=== PATIENT | female | born 1995 | race Asian ===

== ENCOUNTER → 2023-08-19 | Outpatient (REF) | LOC: M PLAIMG 12:22 | PROVIDERS: ATTEND Internal Medicine | DX: R52 Pain, unspecified (principal) ==

== ENCOUNTER 2023-10-30 14:21 | Emergency (ER) | payer OTHER ==
[~2023-10-30] VITALS: Ht 149.9 cm; Wt 53.2 kg
[2023-10-30] MEDS ORDERED: WELL200T PO (14:31)
[2023-10-30] MEDS ORDERED: EXCETAB32 PO (14:32)
[2023-10-30 16:21] LABS: BASO # 0.1 10^3/uL (0.0-0.2); BASO % 0.6 % (0.0-1.0); EOS # 0.2 10^3/uL (0.0-0.5); HEMATOCRIT 46.5 % (36.0-47.0); HEMOGLOBIN 15.6 g/dl (12.0-15.5); LYMPH # 2.9 10^3/uL (1.5-5.0); LYMPH % 30.3 % (24.0-44.0); MEAN CORPUSCULAR HEMOGLOBIN 30.2 pg (27.0-33.0); MEAN CORPUSCULAR HGB CONC 33.5 g/dl (32.0-36.5); MEAN CORPUSCULAR VOLUME 89.9 fl (80.0-96.0); MONO # 0.3 10^3/uL (0.0-0.8); MONO % 3.5 % (2.0-8.0); NEUTROPHILS # 6.1 10^3/uL (1.5-8.5); NEUTROPHILS % 63.5 % (36.0-66.0); PLATELET COUNT, AUTOMATED 309 10^3/uL (150-450); RED BLOOD COUNT 5.17 10^6/uL (4.00-5.40); WHITE BLOOD COUNT 9.6 10^3/uL (4.0-10.0)
[2023-10-30 16:52] LABS: BLOOD UREA NITROGEN 6 MG/DL (9-23); CARBON DIOXIDE LEVEL 29 MMOL/L (20-31); CHLORIDE LEVEL 105 MMOL/L (98-107); CREATININE FOR GFR 0.57 MG/DL (0.55-1.30); GLOMERULAR FILTRATION RATE > 60.0 (>60); GLUCOSE, FASTING 91 MG/DL (60-100); POTASSIUM SERUM 4.2 MMOL/L (3.5-5.1); SODIUM LEVEL 138 MMOL/L (136-145)
[2023-10-30 16:53] LABS: HCG, SERUM QUALITATIVE NEGATIVE (NEGATIVE)
[2023-10-30] MEDS: diphenhydrAMINE 50MG/ML VIAL IV ONE (17:29)
[2023-10-30] MEDS: NS 1,000 ML IV ONE (17:29)
[2023-10-30] MEDS: dexAMETHasone 20MG/5ML VIAL IV ONE (17:29)
[2023-10-30] MEDS: METOCLOPRAMIDE INJ 10MG/2ML VIAL IV ONE (17:40)
[2023-10-30] MEDS ORDERED: IBUP-1114 PO (19:58)
[2023-10-30 20:02] VITALS: BP 100/63; TEMP 98.3; O2SAT 99
== END 2023-10-30 21:04 | disposition home or self-care (01) ==
LOC: MERGE 14:21 → M ED 14:21
DX: G43.909 Migraine, unspecified, not intractable, without status migrainosus (principal); M54.50 Low back pain, unspecified; M25.551 Pain in right hip; Z79.82 Long term (current) use of aspirin; Z79.1 Long term (current) use of non-steroidal anti-inflammatories (NSAID)
CPT/HCPCS: 72110; 73502; 80048; 84703; 85025; 96361; 96374; 96375; 99284; J1100; J1200; J2765

== ENCOUNTER → 2023-11-26 | Outpatient (CLI) | payer OTHER ==
[~2023-11-26] MED LIST: EXCETAB32 PO; IBUP-1114 PO; ISOVUE-300 61% 100ML VIAL As Ordered ONE; LIDOCAINE 1% MDV 20ML VIAL As Ordered ONE; TRIAMCINOLONE ACETONIDE SUSP 40MG/ML 1ML VIAL As Ordered ONE; WELL200T PO
== END ==
LOC: M RAD 13:53
PROVIDERS: ATTEND Physician Assistant Surgical
DX: M25.551 Pain in right hip (principal); M25.552 Pain in left hip
CPT/HCPCS: 20610; 77002; J3301; Q9967

== ENCOUNTER 2023-12-23 18:28 | Emergency (ER) | payer OTHER ==
[~2023-12-23] VITALS: Ht 149.9 cm; Wt 54.1 kg
[~2023-12-23 18:28] MED LIST changes: -ISOVUE-300 61% 100ML VIAL As Ordered ONE; -LIDOCAINE 1% MDV 20ML VIAL As Ordered ONE; -TRIAMCINOLONE ACETONIDE SUSP 40MG/ML 1ML VIAL As Ordered ONE
[2023-12-23 18:51] VITALS: BP 121/75; TEMP 97.7; O2SAT 98
[2023-12-23 20:20] LABS: BASO % 0.4 % (0.0-1.0); EOS # 0.1 10^3/uL (0.0-0.5); EOS % 2.5 % (0.0-3.0); HEMATOCRIT 42.5 % (36.0-47.0); HEMOGLOBIN 14.8 g/dl (12.0-15.5); LYMPH # 1.6 10^3/uL (1.5-5.0); LYMPH % 34.2 % (24.0-44.0); MEAN CORPUSCULAR HEMOGLOBIN 30.4 pg (27.0-33.0); MEAN CORPUSCULAR HGB CONC 34.8 g/dl (32.0-36.5); MEAN CORPUSCULAR VOLUME 87.3 fl (80.0-96.0); MONO # 0.2 10^3/uL (0.0-0.8); NEUTROPHILS # 2.8 10^3/uL (1.5-8.5); NEUTROPHILS % 57.7 % (36.0-66.0); PLATELET COUNT, AUTOMATED 217 10^3/uL (150-450); RED BLOOD COUNT 4.87 10^6/uL (4.00-5.40); WHITE BLOOD COUNT 4.8 10^3/uL (4.0-10.0)
[2023-12-23 20:51] LABS: LIPASE 31 U/L (12-53)
[2023-12-23 20:52] LABS: CK-MB VALUE MASS < 1.0 NG/ML (<3.6); HCG, SERUM QUALITATIVE NEGATIVE (NEGATIVE)
[2023-12-23 20:54] LABS: ALBUMIN 3.9 G/DL (3.2-5.2); ALKALINE PHOSPHATASE 45 U/L (35-104); ALT/SGPT 13 U/L (7.0-40); AST/SGOT 19 U/L (<34); BILIRUBIN,DIRECT 0.1 MG/DL (<0.4); BILIRUBIN,TOTAL 0.6 MG/DL (0.3-1.2); BLOOD UREA NITROGEN 10 MG/DL (9-23); CALCIUM LEVEL 10.7 MG/DL (8.5-10.1); CARBON DIOXIDE LEVEL 29 MMOL/L (20-31); CHLORIDE LEVEL 106 MMOL/L (98-107); CREATININE FOR GFR 0.63 MG/DL (0.55-1.30); GLOMERULAR FILTRATION RATE > 60.0 (>60); GLUCOSE, FASTING 95 MG/DL (60-100); POTASSIUM SERUM 4.2 MMOL/L (3.5-5.1); SODIUM LEVEL 139 MMOL/L (136-145); TOTAL PROTEIN 7.2 G/DL (5.7-8.2)
[2023-12-23 20:56] LABS: FREE T4 1.16 NG/DL (0.89-1.76); THYROID STIMULATING HORMONE 4.971 uIU/ML (0.55-4.78)
[2023-12-23 21:05] LABS: CPK CREATINE PHOSPHOKINASE 72 U/L (34-145); MB/CK RELATIVE INDEX 1.38 (< OR =4)
[2023-12-24 01:35] LABS: CK-MB VALUE MASS < 1.0 NG/ML (<3.6)
[2023-12-24 01:38] LABS: CPK CREATINE PHOSPHOKINASE 52 U/L (34-145); MB/CK RELATIVE INDEX 1.92 (< OR =4)
== END 2023-12-24 01:52 | disposition home or self-care (01) ==
LOC: M ED 18:28
DX: R07.89 Other chest pain (principal); R94.31 Abnormal electrocardiogram [ECG] [EKG]; E28.2 Polycystic ovarian syndrome; Z79.899 Other long term (current) drug therapy